=== PATIENT | male | born 1940 | race Caucasian/White ===

== ENCOUNTER 2016-11-17 08:23 | Day surgery (SDC) | payer BC ==
[2016-11-13 12:24] VITALS: BMI 26.6
[2016-11-17] MEDS ORDERED: PROPOFOL 20 ML ONE ×2 (09:21)
[2016-11-17] MEDS ORDERED: LIDOCAINE HCL/PF 2% SDV 5ML VIAL ONE (09:21)
[2016-11-17 10:28] VITALS: TEMP 98.7
[2016-11-17 10:44] VITALS: BP 135/83
[2016-11-17 10:57] VITALS: PULSE 68
== END 2016-11-17 10:50 | disposition home or self-care (01) ==
LOC: FASU-ENDO 08:23
PROVIDERS: ATTEND Internal Medicine Gastroenterology
PROC: 0D5P8ZZ Destruction of Rectum, Via Natural or Artificial Opening Endoscopic (ICD-10-PCS; principal; 2016-11-17 09:37)
DX: K62.5 Hemorrhage of anus and rectum (principal); K62.7 Radiation proctitis; K57.30 Diverticulosis of large intestine without perforation or abscess without bleeding